=== PATIENT | female | born 1970 | race Asian ===

== ENCOUNTER → 2018-02-08 | Outpatient (CLI) | payer OTHER ==
--- NOTE | 2018-02-08 10:49 | DIAGNOSTIC IMAGING REPORT ---
L HAND MIN 3 VIEWS ROUTINE, R HAND MIN 3 VIEWS ROUTINE CLINICAL HISTORY: Bilateral hand pain. Joint pain. COMPARISON STUDY: None. FINDINGS: No acute fracture or dislocation within the right or left hand. Small periarticular ossific densities at the interphalangeal joint of the bilateral thumbs. This could be due to long-standing degenerative change or old trauma. Soft tissues are within normal limits. No radiopaque foreign bodies. No erosions identified within the right or left hand. Mild cartilage space narrowing within the interphalangeal joints of the thumbs and a few of the DIP joints of the bilateral hands. This is consistent with mild osteoarthritis. Bone mineralization is intact. IMPRESSION: 1. Mild osteoarthritis within the bilateral hands. 2. No fractures identified. 3. No erosions. Electronically signed by: Michael Pedroza M.D. 02/08/2018 10:47 AM Dictated Date/Time: 02/08/2018 10:45 AM
== END | disposition home or self-care (01) ==
LOC: C.RADBC 10:21
PROVIDERS: ATTEND Nurse Practitioner Family
DX: M25.50 Pain in unspecified joint (principal)